=== PATIENT | female | born 1970 | race Caucasian/White ===

== ENCOUNTER 2025-09-06 17:09 | Inpatient (IN) | payer OTHER, SELFPAY ==
[2025-09-06] VITALS (10 sets, daily range): BP systolic 131–160; BP diastolic 88–110; BMI 17.6; BMI 17.2
--- NOTE | 2025-09-06 13:17 | ED.CVA ---
History of Present Illness
General
Chief Complaint: CVA/TIA Symptoms
Source: patient
Exam Limitations: none
Time Seen by Provider: 09/06/25 13:08
Onset of Stroke Symptoms
Onset of symptoms known: Yes
Date of onset of symptoms: 09/05/25
Time of onset of symptoms: 01:00
History of Present Illness
History of Present Illness:
54-year-old female having discussions concerning her son's medical issues at about 1 AM 36 hours ago. Sudden onset of right arm weakness right leg weakness some numbness to the side. Symptoms have persisted until today. Symptoms to the legs seems
slightly worse today. However they have been continuous for 36 hours. No headache. No history of similar episode issues.
Past History
Past History
ED Past Medical History: Seizures and Psychiatric
ED Past Surgical History: Appendectomy and Other (Tumor removed from shoulder, wisdom teeth removed)
Social History
Tobacco: Non-smoker
Alcohol: Occasional
Drug: None
Personal:
Living: with family
Employment: Employed
Family History
Family History: Other
Review of Systems
Review of Systems
All Other Systems: Not applicable
Respiratory: Reports no symptoms
Cardiac: Reports no symptoms
Phy Exam
Physical Exam
Physical Exam:
GENERAL: Alert and oriented in no apparent distress
EYE: Orbits normal.
NECK: Supple, no carotid bruit
ENT: Pharynx without erythema
CARDIAC: Regular rate and rhythm without any obvious murmurs.
LUNGS: Clear breath sounds,normal
ABDOMEN: Soft, without focal tenderness or distention
NEUROLOGICAL: Alert and oriented , right arm right leg weakness. Able to hold the right arm up against gravity. Able to hold the right leg up against gravity but drifts. Slight right facial droop. Eye confrontation normal. Light touch intact.
Negative extension
SKIN: Warm and dry, no rash or lesion, no discoloration, skin intact.
MUSCULOSKELETAL: No edema,no deformity.Good color
PSYCH: Normal and appropriate interaction.
Scores
NIH Stroke Score
Level of Consciousness: 0 - Alert
LOC Questions: 0-Answers both correctly
LOC Commands: 0-Performs both correctly
Best Horizontal Gaze: 0-Normal
Visual Thrasher: 0=Normal, no visual loss
Facial Palsy: 1=Minor paralysis
Motor - Right Arm: 2=Partial vs. gravity
Motor - Left Arm: 0=No drift 10 seconds
Motor - Right Le-Partial vs. gravity
Motor - Left Le-No drift 5 seconds
Limb Ataxia: 0-Absent
Sensation: 0-Normal
Best Language: 0-No aphasia
Dysarthria: 0-Normal
Extinction and Inattention: 0-No abnormality
NIH Total Score:: 5
Course
Orders/Labs/Results
Orders:
Orders
09/06/25 13:01
CT HEAD STROKE ALERT W/o Cont Urgent
Reason For Exam: right sided flaccid since yesterday
09/06/25 13:16
Electrocardiogram (*1) Stat
Reason for Study: Other
Other Reason for Exam: neuro symptoms
CT BRAIN PERF STROKE ALERT Urgent
Comment:
Reason For Exam: Right hemiplegia
CT HEAD/NECK ANG STROKE ALERT Urgent
Comment:
Reason For Exam: Right hemiplegia
Cardiac Monitoring- Treatment ONCE
EKG- Treatment ONCE
Pulse Ox/cont/shift [RESP] Stat
Quantity: 1
09/06/25 13:20
Basic Metabolic Panel Urgent
Complete Blood Count/With Diff Urgent
PTT Urgent
Prothrombin Time Urgent
09/06/25 13:55
Lorazepam [Ativan] 1 mg PO NOW STA
09/06/25 14:11
Aspirin Chewable [Low Strength Aspirin] 324 mg PO NOW STA
Clopidogrel Bisulfate [Plavix] 75 mg PO NOW STA
Abnormal Lab Results
09/06/25 09/06/25
13:18 13:20
Plt Count 424 H 10^3/uL
(130-400)
Absolute Monos (auto) 0.8 H 10^3/uL
(0.1-0.6)
Lymphocytes % 17.8 L %
(20.5-51.1)
Carbon Dioxide 21 L mmol/L
(22-30)
Creatinine 0.5 L mg/dL
(0.6-1.0)
Glucose 108 H mg/dl
(70-99)
POC Glucose 109 H mg/dl
(70-99)
09/06/25 13:20
09/06/25 13:20
Vital Signs
Initial and Last Documented VS:
Initial Vital Signs
Temp Pulse Resp BP Pulse Ox
98.8 F 124 18 154/100 98
09/06/25 13:01 09/06/25 13:01 09/06/25 13:01 09/06/25 13:01 09/06/25 13:01
Last Documented Vital Signs
Temp Pulse Resp BP Pulse Ox
98.8 F 90 14 160/88 98
09/06/25 13:01 09/06/25 15:38 09/06/25 13:30 09/06/25 13:11 09/06/25 15:38
MDM/Problems Addressed
Differential Diagnosis Includes:
Patient clinically with a significant CVA. However occurred 36 hours ago. Because of some progression of symptoms today we will get a perfusion scan. CT head CT angio pending. Stroke alert called.
*Radiology
Radiology exam reviewed: radiology read reviewed (Negative head CT) and other (Questionable intermediate narrowing left M2. No LVO. Head CT negative)
*Pulse Oximetry
SaO2: 98
Oxygen Mode of Delivery: Room air
Patient hypoxic: no
*Critical Care Note
Total Time (30-74mins, 75-104mins- exclusive of procedures): 15
Data Reviewed
Review of Other/Old Records Reveals: Labs, Records and Testing
Update Note
Update Note:
Seen by neurology. Agree with stroke diagnosis. Aspirin Plavix and admit.
ED Attending Note
-
Portions of this chart may have been created with voice recognition software.� Occasional wrong word or��sound alike� substitutions may have occurred due to the inherent limitations of voice recognition software.
Discharge Plan
Departure
Patient Disposition: Admit
Date of Disposition: 09/06/25
Time of Disposition: 14:12
Presentation/result/management discussed w/ accepting MD/DO: Neurology
Discharge Problem:
Subacute CVA
Prescriptions:
No Action
cyanocobalamin (vitamin B-12) 1,000 mcg Tablet
1,000 mcg PO DAILY
aspirin 81 mg Tablet,Delayed Release (Dr/Ec)
162 mg PO DAILYPRN PRN (Reason: mild pain)
wjqjalyjzz-ybremmtxoxolc-eofp [Fioricet] 50-300-40 mg Capsule
1 cap PO BIDPRN PRN (Reason: headaches)
Interventions
Interventions:
*Risk Screen - Suicide Last Done: 09/06/25 13:04
*General Assessment Last Done: 09/06/25 13:04
*Neglect/Abuse Screening Last Done: 09/06/25 13:04
*ED COVID-19 Vaccine History Last Done: 09/06/25 13:04
*ED Influenza Vaccine History Last Done: 09/06/25 13:04
ED- Pulmonary Assessment Last Done: 09/06/25 15:38
ED- Neurological Assessment Last Done: 09/06/25 14:18
ED- Cardiac Assessment Last Done: 09/06/25 15:39
ED Swallowing Screen Last Done: 09/06/25 15:39
Discharge Date and Time
Print Language: IRANIAN
[2025-09-06 13:19] LABS: Glucose - Point of Care 109 mg/dl (70-99)
[2025-09-06 13:41] LABS: Blood Urea Nitrogen 8 mg/dl (7-17); Calcium 10.2 mg/dl (8.4-10.2); Carbon Dioxide 21 mmol/L (22-30); Chloride 107 mmol/L (98-107); Estimated Creatinine Clearance 86 ml/min; Glucose 108 mg/dl (70-99); Potassium 3.9 mmol/L (3.5-5.1); Sodium 138 mmol/L (135-145); eGFR > 60.00
[2025-09-06 13:42] LABS: INR 0.97; PT 13.2 Sec (11.4-14.6)
[2025-09-06 13:43] LABS: APTT 25.7 Sec (23.4-35.0)
[2025-09-06] MEDS: ATIVAN 1 MG PO (13:59)
[2025-09-06 14:01] LABS: Hematocrit 42.0 % (37.0-47.0); Hemoglobin 13.9 g/dL (12.0-16.0); Mean Corp Hgb Conc. 33.1 g/dL (33.0-37.0); Mean Corpuscular Volume 90.5 fL (81.0-99.0); Red Cell Dist. Width 13.5 % (11.5-14.5)
[2025-09-06 14:03] LABS: Nucleated Red Blood Cells % 0 %
--- NOTE | 2025-09-06 14:22 | HPS.HSE ---
Family Physician
-
Family Physician:
Chief Complaint
-
Right Sided Weakness
History of Present Illness
54F hx migraines on Fioricet prn here with new onset right sided weakness numbness started approx 36h ago, worse upper ext compared to lower ext. Denies past medical history and family history of diabetes or hypertension. Endorses history of
anxiety. Mildly hypertensive but otherwise VSS on room air. Labs unremarkable. CT head noted possible Left Page Radiata nonhemorrhagic infarction older infarct. Physical exam was notable for slight right facial droop, strength 3/5 RUE, and 4/5
LLE. AOx3 conversant coherent.
Medical History
Past Medical History
Past Medical History: Reports Other (as above)
Past Surgical History: Reports Other (Breast Implants)
Social History
Tobacco: Non-smoker
Alcohol: Occasional
Drug: None
Personal:
Employment: Employed
Family History
Family History: Not pertinent (reviewed)
Allergies / Home Medications
Allergies reflects when Allergies were last updated in [facility].
Home Medications with original date entered in [facility]
Allergy/Medication List:
Allergies
Allergy/AdvReac Type Severity Reaction Status Date / Time
No Known Allergies Allergy Verified 09/06/25 13:03
Home Medications
aspirin 81 mg tablet,delayed release 162 mg PO DAILYPRN PRN mild pain 09/06/25
okfyngapus-zawsmqlpqjtzk-ckkzobxg 50 mg-300 mg-40 mg capsule (Fioricet) 1 cap PO BIDPRN PRN headaches 09/06/25
cyanocobalamin (vitamin B-12) 1,000 mcg tablet 1,000 mcg PO DAILY 09/06/25
Review of Systems
-
A 12 point ROS was completed and negative except as noted: Yes
Constitutional: Reports Other (as below)
Physical Exam
Vital Signs
Vital Signs
Temp Pulse Resp BP Pulse Ox
98.8 F 109 14 160/88 98
09/06/25 13:01 09/06/25 13:30 09/06/25 13:30 09/06/25 13:11 09/06/25 13:20
Physical Exam
General: Other (as below)
Laboratory Results
-
09/06/25 13:20
09/06/25 13:20
Laboratory Results
PT 13.2 Sec (11.4-14.6) 09/06/25 13:20
INR 0.97 09/06/25 13:20
APTT 25.7 Sec (23.4-35.0) 09/06/25 13:20
Impression/Plan
-
ROS
General: Denies fever chills night sweats unexpected weight loss
Neuro: Denies seizure shaking loss of consciousness dizziness vertigo Reports right sided weakness
Psych: Reports hx anxiety denies depression hallucinations confusion manic episodes
Endocrine: Denies polyuria polydipsia polyphagia heat/cold intolerance
HEENT: Denies blindness visual disturbances epistaxis
Pulmonary: denies coughing hemoptysis sneezing sob dyspnea on exertion
Cardiovascular: denies chest pain palpitations leg swelling
Hematology: denies signs symptoms of anemia easy bruising/bleeding
Gastrointestinal: denies nausea vomiting diarrhea constipation hematemesis hematochezia melena
Genito-Urinary: denies retention incontinence dysuria
Musculoskeletal: denies joint pain weakness
Dermatology: denies rash laceration bruising
Physical Exam
General: No pallor, cyanosis, or jaundice.
HEENT: Throat clear. PERRLA Normocephalic atraumatic
NECK: Supple. No JVD Carotid Bruits
RESPIRATORY: Lungs clear to auscultation. No crackles wheezes stridor
CVS: S1, S2 normal. RRR. No murmur, rub or gallop.
ABDOMEN: Soft, non-tender. No distension. BS+/normal.
EXTREMITIES: No peripheral cyanosis or edema.
[employer]: AOx3 conversant coherent, mild right sided facial drop, RUE strength 3/5, RLE strength 4/5, Left ext's intact strength 5/5
IMPRESSION:
54F hx migraines anxiety here for new onset right sided weakness likely d/t cva, presenting approx 36h after symptom onset
PLAN:
#Highly suspected acute CVA with right sided deficits
ED Neuro evaluation appreciated not a candidate for TPA given symptom onset approx 36h ago, ASA Plavix started
cont DAPT
CT Head appreciated possible Left Page Radiata infarct vs old infarct
CT angio head/neck reviewed
Tele admit
NIH, neurochecks
Neuro Consult
check Brain MRI, Carotid US, ECHO
out of window for permissive htn
Though Goal normotension, suspect long standing HTN, avoid overcorrection, labetalol prn SBP>150 or DBP>100,
check A1c, lipid panel
Start atorvastatin 40 mg QPM
ST/PT/OT eval
Ok for diet at this time, maintain aspiration/fall precautions
#hx migraines on fioricet prn at home
would avoid fioricet at this time w/ acute stroke
Tylenol prn, could consider prn Toradol if Tylenol insufficient
#Anxiety
0.5 mg prn ativan Q8HPRN, at the same time, avoid oversedation w/ recent CVA as above
DVT ppx SCD
Full Code
Discussed with patient and patient's parents father David and Mother Lizbet
I spent a total of 77 minutes with the patient or on the floor. More than 50% of this time involved counseling and coordination of care.
[2025-09-06 14:24] LABS: Platelet Count 424 10^3/uL (130-400)
[2025-09-06] MEDS: PLAVIX 75 MG PO (14:34)
[2025-09-06] MEDS: LOW STRENGTH ASPIRIN 324 MG PO (14:34)
--- NOTE | 2025-09-06 17:27 | EDCM ---
Chart reviewed and spoke with patient, mother and father at bedside.
Lives in a 2 story home with 2 MISTI and 1st floor bathroom
PLOF Independent, drives and works
no DME
PCP Greg Cruz
RX plan yes
Pharmacy [facility]
no hx of VN nor SNF
CM will continue to follow for any dcp needs.
[2025-09-06 17:42] LABS: ALT (SGPT) 21 U/L (0-35); AST (SGOT) 63 U/L (14-36); Albumin 5.4 g/dl (3.5-5.0); Alkaline Phosphatase 97 U/L (38-126); Total Protein 7.8 g/dl (6.3-8.2)
[2025-09-06] MEDS: LIPITOR 40 MG PO (20:08)
--- NOTE | 2025-09-06 21:00 | PTCARENOTE ---
Pt arrived to floor via stretcher from the ED. Pt able to stand and pivot to bed with assistance. Pt AAOx3. NIH assessment performed, score of 5 at this time for right sided weakness. No other deficits noted at this time. Hr in the 80's in NSR on
the monitor. POX 97% on RA. lungs clear. Palpable peripheral pulses present. Right AC int capped. Call mayers in reach. Will continue to monitor.
--- NOTE | 2025-09-06 22:47 | CON.NEURO4 ---
Consultation - Neurology 4
-
CONSULTING PHYSICIAN: Richard Bejarano MD
REFERRING PHYSICIAN: eBnjamín Hylton MD
DICTATED BY: Richard Bejarano MD
DATE/TIME OF REQUEST: 09/06/2025
DATE/TIME OF CONSULTATION: 09/06/2025
Reason for Consultation: Stroke-like symptoms
Assessment and Plan:
The patient is a 54 years old female with history of migraines who presented with new onset right-sided weakness and expressive aphasia. The symptoms started about 36 hours prior to presentation to the ER, therefore she was not a candidate for
thrombolytic therapy due to being outside the time window. The patient's parents were present at the bedside and provided history along with the patient. On Neurologic Examintion, the patient had expressive aphasia and the strength in the right
upper extremity was 3/5 and the strength in the right lower extremity was 4/5. The patient also had a right facial droop. The patient appears to have had a left hemispheric subcortical infarct.
. The CT of the head shows an evolving hypodensity in the left garcia radiata.
. Stroke pathway.
. Aspirin 81 mg daily and Plavix 75 mg daily.
. Atorvastatin 40 mg daily.
. Permissive hypertension with a systolic blood pressure <220
. MRI brain without contrast.
I had a detailed discussion with the patient and her parents regarding the assessment and the management plan and they verbalized understanding of the discussion.
Discussed with Dr. Benjamín Hylton in the ER.
History of Present Illness:
The patient is a 54 years old female with history of migraines who presented with new onset right-sided weakness and expressive aphasia. The symptoms started about 36 hours prior to presentation to the ER, therefore she was not a candidate for
thrombolytic therapy due to being outside the time window. The patient's parents were present at the bedside and provided history along with the patient. On Neurologic Examination, the patient had expressive aphasia and the strength in the right
upper extremity was 3/5 and the strength in the right lower extremity was 4/5. The patient also had a right facial droop. The CT of the head shows a developing hypodensity in the left garcia radiata.
Past Medical History: Migraine. No history of HTN or DM.
Review of Systems:
The 10 point review of systems was was obtained aside from as given the history of present illness above.
Neurologic Examination:
The patient is alert and oriented x 3
The patient has expressive aphasia
The cranial nerves II through XII grossly intact aside from right facial droop
The motor strength is about 3/5 in the right upper extremity and 4/5 in the right lower extremity. The strength is about 5/5 in the left upper and lower extremities.
The sensations are grossly intact bilaterally.
The cerebellar examination does not show limb ataxia.
[2025-09-07] VITALS (8 sets, daily range): BP systolic 128–144; BP diastolic 78–98; PULSE 82; O2SAT 98
--- NOTE | 2025-09-07 03:56 | PTCARENOTE ---
Pt on stretcher to MRI.
--- NOTE | 2025-09-07 04:26 | PTCARENOTE ---
Pt to and from MRI without complication. Pt able to ambulate with assist from stretcher into room. Pt settled in bed per comfort. Pt denies any complaints at this time. Call mayers in reach. Knee high seq in place. Will continue to monitor.
[2025-09-07 06:57] LABS: Hematocrit 39.1 % (37.0-47.0); Hemoglobin 13.1 g/dL (12.0-16.0); Mean Corp Hgb Conc. 33.5 g/dL (33.0-37.0); Mean Corpuscular Volume 91.4 fL (81.0-99.0); Platelet Count 369 10^3/uL (130-400); Red Cell Dist. Width 13.6 % (11.5-14.5)
[2025-09-07 07:04] LABS: Blood Urea Nitrogen 12 mg/dl (7-17); Calcium 9.7 mg/dl (8.4-10.2); Carbon Dioxide 27 mmol/L (22-30); Chloride 104 mmol/L (98-107); Estimated Creatinine Clearance 84 ml/min; Glucose 100 mg/dl (70-99); HDL Cholesterol 65 mg/dl; Potassium 3.8 mmol/L (3.5-5.1); Sodium 140 mmol/L (135-145); Very Low Density Lipoprotein 28 mg/dl (0-30); eGFR > 60.00
[2025-09-07 07:15] LABS: LDL Cholesterol, Calculated 246 mg/dl
[2025-09-07] MEDS: PLAVIX 75 MG PO (07:42)
[2025-09-07] MEDS: LOW STRENGTH ASPIRIN 81 MG PO (07:42)
[2025-09-07] MEDS: VITAMIN B-12 1000 MCG PO (07:42)
[2025-09-07 08:32] LABS: Glycohemoglobin (HgbA1c) 5.4 % (4.0-5.6)
--- NOTE | 2025-09-07 08:59 | W.PN.HOSP.TC ---
Today's Communication/Plan
-
see a/p
Assessment / Plan
Assessment / Plan
Physical Exam
General: No pallor, cyanosis, or jaundice.
HEENT: Throat clear. PERRLA Normocephalic atraumatic
NECK: Supple. No JVD Carotid Bruits
RESPIRATORY: Lungs clear to auscultation. No crackles wheezes stridor
CVS: S1, S2 normal. RRR. No murmur, rub or gallop.
ABDOMEN: Soft, non-tender. No distension. BS+/normal.
EXTREMITIES: No peripheral cyanosis or edema.
[employer]: AOx3 conversant coherent, mild right sided facial drop, RUE strength 3/5, RLE strength 4/5, Left ext's intact strength 5/5
IMPRESSION:
54F hx migraines anxiety here for new onset right sided weakness likely d/t cva, presenting approx 36h after symptom onset
PLAN:
#Acute CVA with right sided deficits
#Hyperlipidemia
ED Neuro evaluation appreciated not a candidate for TPA given symptom onset approx 36h ago, ASA Plavix started
cont DAPT
CT Head appreciated possible Left Page Radiata infarct vs old infarct
CT angio head/neck reviewed
MRI appreciated Small focal left periventricular white matter acute infarct. Tiny acute infarct in the posterior right frontal lobe subcortical white matter. Multiple old lacunar and small infarcts. Mild chronic microvascular white matter ischemic
disease
Tele admit
NIH, neurochecks
Neuro Consult appreciated
Carotid US appreciated no significant stenosis
ECHO appreciated no acute abn's
A1c 5.4
lipid panel reviewed LDL above goal <70, elevated cholesterol, counseled low cholesterol diet.
Start atorvastatin 40 mg QPM
ST eval appreciated regular diet
PT/OT eval appreciated Acute Rehab
Physiatry eval requested
#hx migraines on fioricet prn at home
would avoid fioricet at this time w/ acute stroke
Tylenol prn, could consider prn Toradol if Tylenol insufficient
asymptomatic at this time
#Anxiety
0.5 mg prn ativan Q8HPRN, at the same time, avoid oversedation w/ recent CVA as above
DVT ppx SCD
Full Code
I spent a total of 55 minutes with the patient or on the floor. More than 50% of this time involved counseling and coordination of care.
Anticipated Discharge: 24 - 48 hours
Subjective/Interval History
-
Date of Service: September 07, 2025
No acute distress, stroke symptoms improving, right sided facial droop resolved. RUE strength improving.
Objective Data
-
Labs:
Laboratory Results
09/07/25
05:53
WBC 7.7
Hgb 13.1
Hct 39.1
Plt Count 369
Sodium 140
Potassium 3.8
Chloride 104
Carbon Dioxide 27
BUN 12
Creatinine 0.5 L
Glucose 100 H
Calcium 9.7
Vital Signs:
Vital Signs
Temp Pulse Resp BP Pulse Ox
98.1 F 80 16 129/90 95
09/07/25 07:00 09/07/25 07:00 09/07/25 07:00 09/07/25 07:00 09/07/25 07:00
I&O
09/06/25 09/07/25 09/08/25
06:59 06:59 06:59
Intake Total 480 / 480
Balance 480 / 480
[2025-09-07 09:52] LABS: Ferritin 16.6 ng/ml (11.1-264.0)
[2025-09-07] MEDS: ATIVAN 0.5 MG PO ×2 (09:54→20:07)
[2025-09-07 10:24] LABS: Folate 5.8 ng/ml (2.76-20); Vitamin B12 464 pg/ml (239-931)
--- NOTE | 2025-09-07 11:23 | PTOTSP ---
Speech Therapy Evaluation:
Swallowing:
Pt with acute risk factor of dysphagia (acute CVA), however oropharyngeal swallow appears functional at bedside. No overt s/sx of aspiration across trials, WBC WNL, pt afebrile, on room air, and passed 3oz swallow screen.
Language:
Pt earned an overall score of 9.65 on the QAB, indicative of 'no aphasia' per parameters of this assessment. Slight reductions noted in rate of speech and word finding, which pt reported tends to wax and wane. Pt able to adequately communicate
across contexts to SCENE AND LIGHTING DESIGN LECTURER. Will follow for further education re: word finding strategies and tx as clinically indicated.
Recommend:
1. Regular solids and thin liquids
2. Medications as tolerated
3. General aspiration precautions
4. SCENE [employer] L[employer]ING DES[employer] LECTURER to s/o for swallowing. If concern for aspiration arises please reconsult
5. SCENE AND LIGHTING DESIGN LECTURER to follow for education/tx re: word finding
--- NOTE | 2025-09-07 12:19 | CM ---
Patient seen at bedside
CM consult for dc planning/stroke-Advance directives-information given to patient
PT/OT rec Acute Rehab
Options reviewed with patient, prefers [facility]
referral placed in [facility] called Nannette Talamantes
Physiatry consult ordered
Will need to obtain ins auth
PLAN: Acute Rehab when stable, will need insurance auth, physiatry consult
--- NOTE | 2025-09-07 15:00 | W.PN.NEURO.1 ---
Today's Communication / Plan
-
The patient is a 54 years old female with history of migraines who presented with new onset right-sided weakness and expressive aphasia.
. The CT of the head shows an evolving hypodensity in the left garcia radiata.
. Stroke pathway.
. Aspirin 81 mg daily and Plavix 75 mg daily.
. Atorvastatin 40 mg daily.
. Permissive hypertension with a systolic blood pressure <220
. MRI brain without contrast: Small focal left periventricular white matter acute infarct. Tiny acute infarct in the posterior right frontal lobe subcortical white matter. Multiple old lacunar and small infarcts. Mild chronic microvascular white
matter ischemic disease.
The patient had an acute CVA likely 2/2 uncontrolled hypertension.
Echocardiogram showed a EF of 55%. Indexed left atrial volume is within normal range (15-34 ml/m2).
Will sign off. Please call if you have any question.
Subjective/Objective
Subjective Data
Date of Service: September 07, 2025
The patient is a 54 years old female with history of migraines who presented with new onset right-sided weakness and expressive aphasia. The symptoms started about 36 hours prior to presentation to the ER, therefore she was not a candidate for
thrombolytic therapy due to being outside the time window. The patient's parents were present at the bedside and provided history along with the patient. On Neurologic Examintion, the patient had expressive aphasia and the strength in the right
upper extremity was 3/5 and the strength in the right lower extremity was 4/5. The patient also had a right facial droop. The patient appears to have had a left hemispheric subcortical infarct.
. The CT of the head shows an evolving hypodensity in the left garcia radiata.
. Stroke pathway.
. Aspirin 81 mg daily and Plavix 75 mg daily.
. Atorvastatin 40 mg daily.
. Permissive hypertension with a systolic blood pressure <220
. MRI brain without contrast: Small focal left periventricular white matter acute infarct. Tiny acute infarct in the posterior right frontal lobe subcortical white matter. Multiple old lacunar and small infarcts. Mild chronic microvascular white
matter ischemic disease.
Echocardiogram showed a EF of 55%. Indexed left atrial volume is within normal range (15-34 ml/m2).
Will sign off. Please call if you have any question.
Objective Data
Vital Signs
Temp Pulse Resp BP Pulse Ox
37.2 C 103 16 136/94 94
09/07/25 12:00 09/07/25 12:00 09/07/25 12:00 09/07/25 12:00 09/07/25 12:00
Lab Results
09/07/25 05:53
09/07/25 05:53
PT 13.2 Sec (11.4-14.6) 09/06/25 13:20
INR 0.97 09/06/25 13:20
APTT 25.7 Sec (23.4-35.0) 09/06/25 13:20
Sodium 140 mmol/L (135-145) 09/07/25 05:53
Potassium 3.8 mmol/L (3.5-5.1) 09/07/25 05:53
BUN 12 mg/dl (7-17) 09/07/25 05:53
Glucose 100 mg/dl (70-99) H 09/07/25 05:53
Calcium 9.7 mg/dl (8.4-10.2) 09/07/25 05:53
LDL Cholesterol, Calc 246 mg/dl 09/07/25 05:53
Vitamin B12 464 pg/ml (239-931) 09/07/25 05:53
Patient Allergies
No Known Allergies Allergy (Verified 09/06/25 13:03)
Medications
-
Active Medications
Generic Name Dose Route Start Last Admin
Trade Name Freq PRN Reason Stop Dose Admin
Acetaminophen 650 mg 09/06/25 19:34
Acetaminophen 650 Mg Rectal Suppository RECTAL 10/04/25 19:33
Q4HPRN PRN
JEAN, mild pain, or temp >100.4F
Acetaminophen 650 mg 09/06/25 19:34
Acetaminophen 325 Mg Tablet PO 10/04/25 19:33
Q4HPRN PRN
JEAN, mild pain, or temp >100.4F
Aspirin 81 mg 09/07/25 08:00 09/07/25 07:42
Aspirin 81 Mg Chewable Tablet PO 10/05/25 07:59 81 mg
DAILY JEFFRY Administration
Atorvastatin Calcium 40 mg 09/06/25 19:34 09/06/25 20:08
Atorvastatin (Lipitor) 40 Mg Tablet PO 10/04/25 19:33 40 mg
QPM JEFFRY Administration
Clopidogrel Bisulfate 75 mg 09/07/25 08:00 09/07/25 07:42
Clopidogrel 75 Mg Tablet PO 10/05/25 07:59 75 mg
DAILY JEFFRY Administration
Cyanocobalamin 1,000 mcg 09/07/25 08:00 09/07/25 07:42
Cyanocobalamin (Vitamin B-12) 500 Mcg Tablet PO 10/05/25 07:59 1,000 mcg
DAILY JEFFRY Administration
Labetalol HCl 10 mg 09/06/25 19:34
Labetalol Hcl 5 Mg/1 Ml (20 Mg/4 Ml) Injection IV 10/04/25 19:33
Q6HPRN PRN
SBP>150 Or DBP>100
Lorazepam 0.5 mg 09/06/25 19:34 09/07/25 09:54
Lorazepam 0.5 Mg Tablet PO 10/04/25 19:33 0.5 mg
Q8HPRN PRN Administration
anxiety
Sodium Chloride 0 flush 09/06/25 20:00
Sodium Chloride 0.9% (Flush) Syringe IV 10/04/25 19:59
PER PROTOCOL JEFFRY
Home Medications
�Medication �Instructions �Recorded
aspirin 81 mg tablet,delayed 162 mg PO DAILYPRN PRN mild pain 09/06/25
release
ebcjoolycy-mhzipebvthnfl-odldhspn 1 cap PO BIDPRN PRN headaches 09/06/25
50 mg-300 mg-40 mg capsule
(Fioricet)
cyanocobalamin (vitamin B-12) 1,000 mcg PO DAILY Supplement 09/06/25
1,000 mcg tablet
Vital Signs and Labs
-
Vital Signs and Labs:
Vital Signs
Temp Pulse Resp BP Pulse Ox
37.2 C 103 16 136/94 94
09/07/25 12:00 09/07/25 12:00 09/07/25 12:00 09/07/25 12:00 09/07/25 12:00
Lab Results
09/07/25 05:53
09/07/25 05:53
PT 13.2 Sec (11.4-14.6) 09/06/25 13:20
INR 0.97 09/06/25 13:20
APTT 25.7 Sec (23.4-35.0) 09/06/25 13:20
Sodium 140 mmol/L (135-145) 09/07/25 05:53
Potassium 3.8 mmol/L (3.5-5.1) 09/07/25 05:53
BUN 12 mg/dl (7-17) 09/07/25 05:53
Glucose 100 mg/dl (70-99) H 09/07/25 05:53
Calcium 9.7 mg/dl (8.4-10.2) 09/07/25 05:53
LDL Cholesterol, Calc 246 mg/dl 09/07/25 05:53
Vitamin B12 464 pg/ml (239-931) 09/07/25 05:53
--- NOTE | 2025-09-07 15:15 | W.PN.NEURO.1 ---
Today's Communication / Plan
-
The patient is a 54 years old female with history of migraines who presented with new onset right-sided weakness and expressive aphasia. The symptoms started about 36 hours prior to presentation to the ER, therefore she was not a candidate for
thrombolytic therapy due to being outside the time window. The patient's parents were present at the bedside and provided history along with the patient. On Neurologic Examination, the patient had expressive aphasia and the strength in the right
upper extremity was 3/5 and the strength in the right lower extremity was 4/5. The patient also had a right facial droop.
The patient had a left hemispheric subcortical infarct.
. MRI brain without contrast:
Rounded 1.8 cm focus of restricted diffusion in the left periventricular white matter adjacent to the posterior body of left lateral ventricle, consistent with acute infarct.
Tiny 5 mm acute infarct in the posterior right frontal lobe subcortical white matter.
. The CT of the head shows an evolving hypodensity in the left garcia radiata.
. Stroke pathway.
. Aspirin 81 mg daily and Plavix 75 mg daily.
. Atorvastatin 40 mg daily.
. Permissive hypertension with a systolic blood pressure <220
. Recommend inpatient rehab
. Follow up in Neurology in 4 weeks.
Will sign off. Please call if you have any question.
Subjective/Objective
Subjective Data
The patient is a 54 years old female with history of migraines who presented with new onset right-sided weakness and expressive aphasia. The symptoms started about 36 hours prior to presentation to the ER, therefore she was not a candidate for
thrombolytic therapy due to being outside the time window. The patient's parents were present at the bedside and provided history along with the patient. On Neurologic Examination, the patient had expressive aphasia and the strength in the right
upper extremity was 3/5 and the strength in the right lower extremity was 4/5. The patient also had a right facial droop.
The patient had a left hemispheric subcortical infarct.
. MRI brain without contrast:
Rounded 1.8 cm focus of restricted diffusion in the left periventricular white matter adjacent to the posterior body of left lateral ventricle, consistent with acute infarct.
Tiny 5 mm acute infarct in the posterior right frontal lobe subcortical white matter.
. The CT of the head shows an evolving hypodensity in the left garcia radiata.
. Stroke pathway.
. Aspirin 81 mg daily and Plavix 75 mg daily.
. Atorvastatin 40 mg daily.
. Permissive hypertension with a systolic blood pressure <220
Objective Data
Neurologic Examination:
The patient is alert and oriented x 3
The patient has expressive aphasia
The cranial nerves II through XII grossly intact aside from right facial droop
The motor strength is about 3/5 in the right upper extremity and 4/5 in the right lower extremity. The strength is about 5/5 in the left upper and lower extremities.
The sensations are grossly intact bilaterally.
The cerebellar examination does not show limb ataxia.
Vital Signs and Labs
-
Vital Signs and Labs:
Vital Signs
Temp Pulse Resp BP Pulse Ox
37.2 C 103 16 136/94 94
09/07/25 12:00 09/07/25 12:00 09/07/25 12:00 09/07/25 12:00 09/07/25 12:00
Lab Results
09/07/25 05:53
09/07/25 05:53
PT 13.2 Sec (11.4-14.6) 09/06/25 13:20
INR 0.97 09/06/25 13:20
APTT 25.7 Sec (23.4-35.0) 09/06/25 13:20
Sodium 140 mmol/L (135-145) 09/07/25 05:53
Potassium 3.8 mmol/L (3.5-5.1) 09/07/25 05:53
BUN 12 mg/dl (7-17) 09/07/25 05:53
Glucose 100 mg/dl (70-99) H 09/07/25 05:53
Calcium 9.7 mg/dl (8.4-10.2) 09/07/25 05:53
LDL Cholesterol, Calc 246 mg/dl 09/07/25 05:53
Vitamin B12 464 pg/ml (239-931) 09/07/25 05:53
Medications
-
Active Medications
Generic Name Dose Route Start Last Admin
Trade Name Freq PRN Reason Stop Dose Admin
Acetaminophen 650 mg 09/06/25 19:34
Acetaminophen 650 Mg Rectal Suppository RECTAL 10/04/25 19:33
Q4HPRN PRN
JEAN, mild pain, or temp >100.4F
Acetaminophen 650 mg 09/06/25 19:34
Acetaminophen 325 Mg Tablet PO 10/04/25 19:33
Q4HPRN PRN
JEAN, mild pain, or temp >100.4F
Aspirin 81 mg 09/07/25 08:00 09/07/25 07:42
Aspirin 81 Mg Chewable Tablet PO 10/05/25 07:59 81 mg
DAILY JEFFRY Administration
Atorvastatin Calcium 40 mg 09/06/25 19:34 09/06/25 20:08
Atorvastatin (Lipitor) 40 Mg Tablet PO 10/04/25 19:33 40 mg
QPM JEFFRY Administration
Clopidogrel Bisulfate 75 mg 09/07/25 08:00 09/07/25 07:42
Clopidogrel 75 Mg Tablet PO 10/05/25 07:59 75 mg
DAILY JEFFRY Administration
Cyanocobalamin 1,000 mcg 09/07/25 08:00 09/07/25 07:42
Cyanocobalamin (Vitamin B-12) 500 Mcg Tablet PO 10/05/25 07:59 1,000 mcg
DAILY JEFFRY Administration
Labetalol HCl 10 mg 09/06/25 19:34
Labetalol Hcl 5 Mg/1 Ml (20 Mg/4 Ml) Injection IV 10/04/25 19:33
Q6HPRN PRN
SBP>150 Or DBP>100
Lorazepam 0.5 mg 09/06/25 19:34 09/07/25 09:54
Lorazepam 0.5 Mg Tablet PO 10/04/25 19:33 0.5 mg
Q8HPRN PRN Administration
anxiety
Sodium Chloride 0 flush 09/06/25 20:00
Sodium Chloride 0.9% (Flush) Syringe IV 10/04/25 19:59
PER PROTOCOL JEFFRY
Home Medications
�Medication �Instructions �Recorded
aspirin 81 mg tablet,delayed 162 mg PO DAILYPRN PRN mild pain 09/06/25
release
xpegopyrny-ljhhvdnchayxq-jlruxelb 1 cap PO BIDPRN PRN headaches 09/06/25
50 mg-300 mg-40 mg capsule
(Fioricet)
cyanocobalamin (vitamin B-12) 1,000 mcg PO DAILY Supplement 09/06/25
1,000 mcg tablet
[2025-09-07] MEDS: LIPITOR 40 MG PO (17:37)
--- NOTE | 2025-09-07 22:01 | PTCARENOTE ---
Pt was admitted to the hospital for a stroke. Ordered knee-high SCD's. 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 Education given on the importance of the SCD's and why they are ordered. 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
[2025-09-08] VITALS (8 sets, daily range): BP systolic 131–150; BP diastolic 83–99; PULSE 89–91
--- NOTE | 2025-09-08 08:02 | W.PN.HOSP.TC ---
Today's Communication/Plan
-
BP control, start low dose Amlodipine
Likely [facility] rehab tomorrow if remains stable
Assessment / Plan
Assessment / Plan
Physical Exam
General: No pallor, cyanosis, or jaundice.
HEENT: Throat clear. PERRLA Normocephalic atraumatic
NECK: Supple. No JVD Carotid Bruits
RESPIRATORY: Lungs clear to auscultation. No crackles wheezes stridor
CVS: S1, S2 normal. RRR. No murmur, rub or gallop.
ABDOMEN: Soft, non-tender. No distension. BS+/normal.
EXTREMITIES: No peripheral cyanosis or edema.
AIRPORT RAMP AGENT: AOx3 conversant coherent, rt facial droop resolved, RUE strength 4/5, right hand paralyzed, RLE strength 4/5, Left ext's intact strength 5/5
IMPRESSION:
54F hx migraines anxiety here for new onset right sided weakness likely d/t cva, presenting approx 36h after symptom onset
PLAN:
#Acute CVA with right sided deficits
#Hyperlipidemia
ED Neuro evaluation appreciated not a candidate for TPA given symptom onset approx 36h ago, ASA Plavix started
cont DAPT
CT Head appreciated possible Left Page Radiata infarct vs old infarct
CT angio head/neck reviewed
MRI appreciated Small focal left periventricular white matter acute infarct. Tiny acute infarct in the posterior right frontal lobe subcortical white matter. Multiple old lacunar and small infarcts. Mild chronic microvascular white matter ischemic
disease
Tele admit
NIH, neurochecks
Neuro Consult appreciated
Carotid US appreciated no significant stenosis
ECHO appreciated no acute abn's
A1c 5.4
lipid panel reviewed LDL above goal <70, elevated cholesterol, counseled low cholesterol diet.
atorvastatin 40 mg QPM
ST eval appreciated regular diet
PT/OT eval appreciated Acute Rehab
Physiatry eval appreciated
#HTN
low dose amlodipine 2.5 mg daily started
goal normotension at this time, out of window for permissive HTN
#hx migraines on fioricet prn at home
would avoid fioricet at this time w/ acute stroke
Tylenol prn
asymptomatic at this time
#Anxiety
0.5 mg prn ativan Q8HPRN
#BMI:17.7 underweight
Dietary consult appreciated
encourage good nutrition
DVT ppx SCD
Full Code
I spent a total of 39 minutes with the patient or on the floor. More than 50% of this time involved counseling and coordination of care.
Anticipated Discharge: Within 24 hours
Subjective/Interval History
-
Date of Service: September 08, 2025
No acute distress, appears comfortable at this time.
Objective Data
-
Vital Signs:
Vital Signs
Temp Pulse Resp BP Pulse Ox
98.3 F 100 14 131/89 96
09/08/25 03:15 09/08/25 03:15 09/08/25 03:15 09/08/25 03:15 09/08/25 03:15
I&O
09/07/25 09/08/25 09/09/25
06:59 06:59 06:59
Intake Total 480 / 480 1740 / 1740
Balance 480 / 480 1740 / 1740
[2025-09-08] MEDS: VITAMIN B-12 1000 MCG PO (08:18)
[2025-09-08] MEDS: LOW STRENGTH ASPIRIN 81 MG PO (08:19)
[2025-09-08] MEDS: PLAVIX 75 MG PO (08:19)
[2025-09-08] MEDS: NORVASC 2.5 MG PO (08:38)
--- NOTE | 2025-09-08 08:43 | CON.MD ---
Consultation - Medical
-
Chief Complaint:�Stroke
�
History of Present Illness:�54-year-old Right hand dominant female with PMH (as below) presented to [facility] 09/[facility] with new onset right-sided weakness and numbness for 36 hours worse in the right arm compared to leg. Concern for
CVA with right upper extremity strength 3/5 and right lower extremity strength 4/5. CT of the head noting a possible left garcia radiata infarct versus old infarct. Not a candidate for tPA. Started on aspirin and Plavix. Carotid ultrasound with
no significant stenosis. MRI brain without contrast: Small focal left periventricular white matter acute infarct. Tiny acute infarct in the posterior right frontal lobe subcortical white matter. Multiple old lacunar and small infarcts. Mild chronic
microvascular white matter ischemic disease. Per neurology etiology of stroke thought to be secondary to chronic microvascular white matter ischemic disease. Echocardiogram with a EF of 55%.
�
Past Medical History:�Migraines, seizure�no longer on medication, anxiety
Procedure History:�Breast implants, wisdom teeth removal, tumor removal of her back�benign
Family History:�Denies
�
Social History:�
Functional Level Premorbidly:�Independent with all activities�
Functional Level Currently:�Min to mod assist ambulating 15 feet x 2 with no device. Supervision for bed mobility and transfers. Min A grooming and toileting. Mod A LE self care.
�
Tobacco:�Denies�
Alcohol:�Occasional
Drug use:�Denies�
�
Lives with:�Alone
24-hour assistance available:�No
Number of floors:�2
# steps to enter:�2
# steps to second floor: Full flight
Potential First floor set up:�No
Driving:�Yes
Occupation:�Employed�works very well [employer]
�
�
Allergies:�
Allergy/AdvReac Type Severity Reaction Status Date / Time
No Known Allergies Allergy Verified 09/06/25 13:03
�
Review of Systems:�
Constitutional: (x) abNormal _fatigue
Eye: (x) Normal _
Ear/Nose/Throat: (x) Normal _
Respiratory: (x) Normal _
Cardiovascular: (x) Normal _
Gastrointestinal: (x) Normal _
Genitourinary: (x) Normal _
Musculoskeletal: (x) Normal _
Integumentary: (x) Normal _
Neurologic: (x) abNormal _stroke with right-sided weakness and some difficulty with speech at times, trouble getting the words out
Psychiatric: (x) Normal _
Endocrine: (x) Normal _
Hematologic/Lymphatic: (x) Normal _
Allergic/Immunologic: (x) Normal _
�
Medications:�
Active Current Visit Medication List
Category Date Time Status
Acetaminophen [Tylenol/Feverall] Med 09/06/25 19:34 Active
650 mg RECTAL Q4HPRN PRN
Acetaminophen [Tylenol] Med 09/06/25 19:34 Active
650 mg PO Q4HPRN PRN
Amlodipine [Norvasc] Med 09/08/25 09:00 Active
2.5 mg PO DAILY
Aspirin Chewable [Low Strength Aspirin] Med 09/07/25 08:00 Active
81 mg PO DAILY
Atorvastatin [Lipitor] Med 09/06/25 19:34 Active
40 mg PO QPM
Clopidogrel Bisulfate [Plavix] Med 09/07/25 08:00 Active
75 mg PO DAILY
Cyanocobalamin [Vitamin B-12] Med 09/07/25 08:00 Active
1,000 mcg PO DAILY
Flush (0.9% Sodium Chloride) [Flush (Nss)] Med 09/06/25 20:00 Active
See Dose Instructions IV PER PROTOCOL
Lorazepam [Ativan] Med 09/06/25 19:34 Active
0.5 mg PO Q8HPRN PRN
�
Vitals:�
Temp Pulse Resp BP Pulse Ox
98.3 F 83 17 150/90 97
09/08/25 08:01 09/08/25 08:38 09/08/25 08:01 09/08/25 08:38 09/08/25 08:01
Height 5 ft 7 in
Actual Weight 49.697 kg
Body Mass Index (BMI) 17.2
�
Physical Exam:�
General Appearance/Observation: Well-developed, well-nourished female in no apparent distress.�
Pain/Comfort Assessment: Denies�
Mood/Affect: Appropriate�
�
Integumentary/Operative Site:�No skin lesions noted during course of exam.
�
Eyes: Conjunctiva/Lids: normal��� Pupils: pupils equal round and reactive to light and Accommodation
Ears/Nose/Throat: oral mucosa moist, throat clear.������������ Lips/Teeth/Gums: normal
Cardiovascular: Heart: regular, no murmur�
Pulses: dorsalis pedis 2+ bilaterally�
Respiratory: Respiratory Effort/Chest Expansion: normal������ Auscultation: Clear to auscultation bilaterally
Gastrointestinal: abdomen not tender, no distension, normal abdominal bowel sounds
Genitourinary: No Petersen�
Rectal Exam: Deferred�
Extremities:�Edema: None�Cyanosis: None�Trophic�changes: None
Neurology Exam:
Orientation: Alert, Oriented to self, Time, Place�
Memory: Intact for recent medical concerns
Repetition: Intact
Comprehension: Intact
Two step command: Intact
Naming: Intact
Cranial Nerves:
�� CNII:�Pupillary light reflex: Intact���Visual Field: Intact
�� CN III, IV, : Extraocular muscles: Intact�
�� CN V:�Facial Sensation�at�Forehead: Intact,�Maxilla: Intact,�Mandible: Intact
�� CN VII:�Facial movement: Slight right facial weakness
�� CN VIII:�Hearing: Normal
�� CN IX/X:�Speech & swallow: Slight dysarthria occasional word finding difficulty�position of Uvula: Midline
�� CN XI:�Shoulder shrug: Slight decreased on the right
�� CN XII:�Tongue protrusion: Midline
Sensory:
�� Light touch: Intact in bilateral upper and lower extremities
�
Reflexes:
�� Biceps: 2+ bilaterally
�� Brachioradialis: 2+ bilaterally
�� Triceps: 2+ bilaterally
�� Patellar: 2+ bilaterally
�� Achilles: 2+ bilaterally
�� Babinski: Down going bilaterally
�� Clonus: None
�� Carmelita: Negative bilaterally�
Cerebellar: Dysmetria/Ataxia: Unable to assess on the right, none on the left
Musculoskeletal: Motor: (Manual muscle scale 0-5)�
Muscle SA EF WE EE FF FA HF KE DF EHL PF
Right� 2+ 3+ 1 2+ 1 1 3+ 4+ 4 4 4
Left 5 5 5 5 5 5 4 5 5 5 5
�
Tone: Normal in all extremities�
Range of Motion: Passively within normal limits in all extremities�
�
Lab Results
Laboratory Data
09/07/25 05:53
09/07/25 05:53
PT 13.2 Sec (11.4-14.6) 09/06/25 13:20
INR 0.97 09/06/25 13:20
APTT 25.7 Sec (23.4-35.0) 09/06/25 13:20
Total Bilirubin 0.7 mg/dl (0.2-1.3) 09/06/25 13:20
Direct Bilirubin 0.3 mg/dl (0.0-0.4) 09/06/25 13:20
AST 63 U/L (14-36) H 09/06/25 13:20
ALT 21 U/L (0-35) 09/06/25 13:20
Alkaline Phosphatase 97 U/L (38-126) 09/06/25 13:20
Total Protein 7.8 g/dl (6.3-8.2) 09/06/25 13:20
Albumin 5.4 g/dl (3.5-5.0) H 09/06/25 13:20
�
Diagnostic Results:�as per HPI�
�
Assessment
54-year-old F PMH (migraines, anxiety) with 09/06/2025 right hemiparesis from acute right frontal lobe subcortical white matter infarct with multiple old lacunar and small infarcts with mild chronic microvascular white matter ischemic disease
resulting in ADL and ambulatory dysfunction.
�
Plan�
PM&R�PT/OT to increase independence with ADLs, improve balance, coordination, endurance, strength, mobility, community reintegration, decreased burden of care on others and family education.�
�
CVA: Secondary prophylaxis with aspirin and Plavix, statin, and blood pressure control (SBP less than 180 and diastolic less than 100 to participate with therapy for ischemic stroke). Continue to monitor neurologic status.�
Right dominant hemiparesis: High risk for falls and sliding out of chair/bed. Safety reinforced.�
- Avoid using affected arm to help lift or pull patient as this will cause trauma to the shoulder.
Slight dysarthria/aphasia: Speech, not limiting communication
Hypertension: Amlodipine 2.5 mg daily. Acute elevation could be related to stroke. Neurology concerned that hypertension could be etiology of stroke. Continue to monitor
Migraines: Continue medications.�
Anxiety: Monitor mood, getting Ativan as needed for anxiety, would prefer to avoid benzodiazepines as much as possible.�
Skin: monitor for pressure sores/rashes/lesions.�
Pain: acetaminophen as needed.�
Bowel: Colace and Senna, PRN bisacodyl.�
Bladder: Time void, PVRs, PRN straight cath.�
DVT Prophylaxis: Mechanical and suggest chemoprophylaxis with Lovenox with hemiparesis
Pulmonary: Incentive spirometry�
Safety: Continue to reinforce assistance with all transfers.�
Code Status:� Full code
Dispo�(date/plan/equipment needs): Home with family care.� Social history reviewed.�
Functional and Medical Goals:�Modified Independent with ADL�s, ambulation, transfers�
Discharge Destination:�Acute inpatient rehabilitation�
Summary of recommendations:
-�Discharge Destination:�Acute inpatient rehabilitation
CVA: Secondary prophylaxis with aspirin and Plavix, statin, and blood pressure control (SBP less than 180 and diastolic less than 100 to participate with therapy for ischemic stroke). Continue to monitor neurologic status.�
Slight dysarthria/aphasia: Speech, not limiting communication
DVT Prophylaxis: Mechanical and suggest chemoprophylaxis with Lovenox with hemiparesis
Bowel: Colace and Senna, PRN bisacodyl.�
Bladder: Time void, PVRs, PRN straight cath.�
�
Thank you for allowing me to care for your patient. Please contact me with any questions or concerns.
Consultation
-
Date/Time Consultation Requested: 09/07/25
Date/Time Consultation Performed: 09/08/25
Requesting Provider: Dr. Berhane Pina
Performing Provider: Dr. Bhupinder Cooper
Reason for Consultation: Stroke
--- NOTE | 2025-09-08 09:34 | PN.CDI ---
CDI
- -
CDI:
Physician Documentation Request
Admit Date: 09/06/25 17:09
Dear Doctor Yovani,
Please review the following and provide your response in the progress notes.
Clinical Indicators:
Height: 5 ft 7 in
Weight:109
BMI:17.7
Other Clinical Notes:Nutrition consult Weight-109 lbs 9 oz (10-14, BMI 17.2-underwt)-no weight loss or request for nutrition consult per current clinical data at admission (records show remote weight of 113 lbs from October 02, 2023 external
medical summary)-will monitor during hospitalization...'
If possible, please provide an associated diagnosis related to the abnormal BMI, such as:
BMI < or = to 19
Underweight
Cachectic
- Other
Use of terms such as suspected, likely, concern for, or probable (associated with a specific diagnosis that is being evaluated, monitored, or treated as if it exists) are acceptable and can be coded in the inpatient setting, when documented at the
time of discharge.
Thank you,
Abby Akhtar RN
CDI Specialist
[place] [facility]
Please use your independent medical judgment in providing your response.
[2025-09-08] MEDS: ATIVAN 0.5 MG PO (10:10)
--- NOTE | 2025-09-08 13:06 | CM ---
Patient seen at bedside
physiatry eval [facility] acute rehab
Spoke with Nannette at [facility] - bed available tomorrow at [facility]
tt hospitalist stable tomorrow for dc
CM to initiate ins authorization - called Jeancarlos Alexis at
[facility] NPI #: [id number]
Dr. Cooper NPI #: [id number]
CM spoke with Whitney at [employer] ( )
states there will be $600 co-pay, patient made aware
start date 09/09/25, NRD 09/13/25
call with updates to [phone]
AUTH APPROVAL #: [id number]
LM with Nannette of auth information
PLAN: [facility] 09/09
Report #: [phone]
Fax #: [phone]
[2025-09-08] MEDS: LIPITOR 40 MG PO (18:18)
[2025-09-09 07:00] VITALS: BP 136/83
--- NOTE | 2025-09-09 07:57 | W.PN.HOSP.TC ---
Today's Communication/Plan
-
discharge
Assessment / Plan
Assessment / Plan
Physical Exam
General: No pallor, cyanosis, or jaundice.
HEENT: Throat clear. PERRLA Normocephalic atraumatic
NECK: Supple. No JVD Carotid Bruits
RESPIRATORY: Lungs clear to auscultation. No crackles wheezes stridor
CVS: S1, S2 normal. RRR. No murmur, rub or gallop.
ABDOMEN: Soft, non-tender. No distension. BS+/normal.
EXTREMITIES: No peripheral cyanosis or edema.
CALIBRATOR BAROMETERS: AOx3 conversant coherent, rt facial droop resolved, RUE strength 4/5, right hand paralyzed, RLE strength 4/5, Left ext's intact strength 5/5
IMPRESSION:
54F hx migraines anxiety here for new onset right sided weakness likely d/t cva, presenting approx 36h after symptom onset
PLAN:
#Acute CVA with right sided deficits
#Hyperlipidemia
ED Neuro evaluation appreciated not a candidate for TPA given symptom onset approx 36h ago, ASA Plavix started
cont DAPT
CT Head appreciated possible Left Page Radiata infarct vs old infarct
CT angio head/neck reviewed
MRI appreciated Small focal left periventricular white matter acute infarct. Tiny acute infarct in the posterior right frontal lobe subcortical white matter. Multiple old lacunar and small infarcts. Mild chronic microvascular white matter ischemic
disease
repeat CT head 09/09 noted stable findings (repeated due to concerns worsening RLE weakness though patient also reports still better than when she first came in and later reported improvement after further ambulation following repeat CT)
NIH, neurochecks
Neuro Consult appreciated
Carotid US appreciated no significant stenosis
ECHO appreciated no acute abn's
A1c 5.4
lipid panel reviewed LDL above goal <70, elevated cholesterol, counseled low cholesterol diet.
atorvastatin 40 mg QPM
ST eval appreciated regular diet
PT/OT and Physiatry eval appreciated Acute Rehab
#HTN
goal normotension at this time, out of window for permissive HTN
low dose amlodipine 2.5 mg daily started and titrated up to 5 mg daily
#hx migraines on fioricet prn at home
would avoid fioricet at this time w/ acute stroke
Tylenol prn
asymptomatic at this time
#Anxiety
0.5 mg prn ativan Q8HPRN
#BMI:17.7 underweight
Dietary consult appreciated
encourage good nutrition
DVT ppx SCD
Full Code
Medically stable for discharge Acute Rehab with outpatient follow up recommendations.
Total Time Preparing Discharge ___40____ minutes including examination of the patient, summary of the hospital stay, instructions for continuing care to all relevant caregivers; and preparation of discharge records, prescriptions, and referral
forms if necessary.
Anticipated Discharge: Today
Subjective/Interval History
-
Date of Service: September 09, 2025
no acute distress, overall reports feeling well, notes some worsening of RLE weakness though still better than when she first came in. Looking forward to going to [facility].
Objective Data
-
Vital Signs:
Vital Signs
Temp Pulse Resp BP Pulse Ox
98.3 F 81 18 136/83 96
09/09/25 07:00 09/09/25 07:00 09/09/25 07:00 09/09/25 07:00 09/09/25 07:00
I&O
09/08/25 09/09/25 09/10/25
06:59 06:59 06:59
Intake Total 1740 / 1740 1320 / 1320
Balance 1740 / 1740 1320 / 1320
[2025-09-09] MEDS: LOW STRENGTH ASPIRIN 81 MG PO (09:22)
[2025-09-09] MEDS: PLAVIX 75 MG PO (09:22)
[2025-09-09] MEDS: VITAMIN B-12 1000 MCG PO (09:22)
[2025-09-09] MEDS: NORVASC 5 MG PO (09:22)
[2025-09-09] MEDS: TYLENOL 650 MG PO (09:30)
[2025-09-09 11:00] VITALS: BP 147/87
--- NOTE | 2025-09-09 12:23 | CM ---
indicated pt ready for discharge.
Pt aware of $600 co-pay for [place].
Nannette accepted patient to [facility] today.
AUTH APPROVAL #: [id number] start date 09/09/25, NRD 09/13/25 call with updates to [phone]
Nannette aware of auth information.
Pt aware and agrees with discharge today.Pt contacted family of discharge.
PLAN: [facility]
Report #: [phone]
Fax #: [phone]
PLAN To [facility]
[2025-09-09 15:00] VITALS: BP 126/86
--- NOTE | 2025-09-09 15:01 | W.DCSUMMARY ---
Discharge Summary
Discharge Data
Date of Admission: 09/06/25
Date of Discharge: 09/09/25
-
Pending Results: No
Discharge Plan
-
Patient Disposition: Acute Rehab Facility
Discharge Diagnosis/Procedures: Acute Stroke with right sided deficits
Hyperlipidemia
Hypertension
Anxiety
BMI:17.2 underweight
Condition: Fair
Diet: Low Cholesterol and 2 Gram Sodium
Activity: With assistance and As tolerated
Driving Restrictions: Not until seen by your Dr
Bathing Restrictions: None
Blood Work: repeat Lipid Panel with primary care provider in 1 month of discharge
Other Services: PT, OT and ST
Activity Restrictions/Additional Instructions:
Aspirin and Plavix, dual antiplatelet, started for stroke. September 26Friday last day for Plavix. Continue with aspirin indefinitely or until otherwise instructed by your healthcare provider.
Atorvastatin started for stroke and for hyperlipidemia.
Amlodipine started for hypertension.
Ativan prescribed as needed for anxiety.
Fioricet was discontinued due to recent stroke. Follow up with primary care provider and/or other healthcare provider involved in your care before considering to resume.
Please take medications as prescribed/recommended and follow up with primary care provider and/or other healthcare provider involved in your care for refills and/or further adjustment to your medication regimen as necessary
Referrals:
Greg Cruz MD [Family Provider, Family Practice] - in one week
Kleber Avalos MD [Active, Neurology] - in one month
Prescriptions:
New
lorazepam 0.5 mg Tablet
0.5 mg PO BIDPRN PRN (Reason: anxiety) Qty: 6 0RF
atorvastatin 40 mg Tablet
40 mg PO QPM Qty: 30 0RF
clopidogrel 75 mg Tablet
75 mg PO DAILY Qty: 17 0RF
Rx Instructions:
September 26Friday last day for Plavix.
amlodipine 5 mg Tablet
5 mg PO DAILY Qty: 30 0RF
aspirin 81 mg Tablet,Chewable
81 mg PO DAILY Qty: 30 0RF
Continued
cyanocobalamin (vitamin B-12) 1,000 mcg Tablet
1,000 mcg PO DAILY
Discontinued
aspirin 81 mg Tablet,Delayed Release (Dr/Ec)
162 mg PO DAILYPRN PRN (Reason: mild pain)
[id number] [Fioricet] 50-300-40 mg Capsule
1 cap PO BIDPRN PRN (Reason: headaches)
Discharge Orders:
Discharge Patient (As Directed); Ordered 09/09/25
Ordered By: Berhane Pina
Discharge Date and Time
Print Language: MICRONESIAN
== END 2025-09-09 16:28 | DRG 65 ==
LOC: 3 WEST ACU 17:09
PROVIDERS: ADMITTING PHYSICIAN Internal Medicine; CONSULT PHYSICIAN Physical Medicine & Rehabilitation; CONSULT PHYSICIAN Psychiatry & Neurology Neurology; EMERGENCY PHYSICIAN Emergency Medicine; FAMILY PHYSICIAN Family Medicine
DX: I63.9 Cerebral infarction, unspecified (principal); G81.91 Hemiplegia, unspecified affecting right dominant side; Z68.1 Body mass index [BMI] 19.9 or less, adult; F41.9 Anxiety disorder, unspecified; E78.5 Hyperlipidemia, unspecified; I10 Essential (primary) hypertension; R63.6 Underweight; Z79.02 Long term (current) use of antithrombotics/antiplatelets; Z79.82 Long term (current) use of aspirin; Z79.899 Other long term (current) drug therapy
CPT/HCPCS: 0042T; 70450; 70496; 70498; 70551; 80048; 80061; 80076; 82607; 82728; 82746; 82962; 83036; 84443; 85025; 85027; 85610; 85730; 87070; 92507; 92523; 92610; 93005; 93306; 93880; 97112; 97116; 97129; 97163; 97167; 99285; Q9967